=== PATIENT | male | born 1985 | race Caucasian/White ===

== ENCOUNTER → 2016-06-03 | Day surgery (SDC) | payer BC, OTHER ==
[~2016-06-03] VITALS: Ht 180.3 cm; Wt 93.0 kg
[~2016-06-03] MED LIST: PERCOCET 7.5-31 EACH PO; ZANTAC150 MG PO
== END | disposition home or self-care (01) ==
LOC: OR 07:50
PROVIDERS: Orthopaedic Surgery
PROC: 0SQC4ZZ Repair Right Knee Joint, Percutaneous Endoscopic Approach (ICD-10-PCS; 2016-06-03)
PROC: 0SBC4ZZ Excision of Right Knee Joint, Percutaneous Endoscopic Approach (ICD-10-PCS; principal; 2016-06-03 13:15)
DX: S83.211A Bucket-handle tear of medial meniscus, current injury, right knee, initial encounter (principal); Z90.89 Acquired absence of other organs; K21.9 Gastro-esophageal reflux disease without esophagitis; Z87.19 Personal history of other diseases of the digestive system; Z79.899 Other long term (current) drug therapy; Z82.49 Family history of ischemic heart disease and other diseases of the circulatory system; X58.XXXA Exposure to other specified factors, initial encounter; Y93.67 Activity, basketball
CPT/HCPCS: J0171; J0690; J1100; J2270; J2405; J7120